=== PATIENT | female | born 1950 ===

== ENCOUNTER 2018-02-19 08:02 | Day surgery (SDC) | payer BC, MEDICARE ==
[~2018-02-19] VITALS: Ht 160 cm; Wt 90.7 kg
== END 2018-02-19 10:24 | disposition home or self-care (01) ==
LOC: ORSCSDS 08:02
PROVIDERS: Surgery
PROC: 0DBM8ZX Excision of Descending Colon, Via Natural or Artificial Opening Endoscopic, Diagnostic (ICD-10-PCS; principal; 2018-02-19 09:15)
DX: Z12.11 Encounter for screening for malignant neoplasm of colon (principal); D12.4 Benign neoplasm of descending colon; Z80.0 Family history of malignant neoplasm of digestive organs; I10 Essential (primary) hypertension; E78.5 Hyperlipidemia, unspecified; E66.9 Obesity, unspecified; Z68.35 Body mass index [BMI] 35.0-35.9, adult
CPT/HCPCS: 88305; J7120

== ENCOUNTER 2023-04-15 09:16 | Day surgery (SDC) | payer MEDICARE, BC ==
[~2023-04-15] VITALS: Ht 160 cm; Wt 95.6 kg
[2023-04-15 11:24] VITALS: BP 110/66
== END 2023-04-15 11:18 | disposition home or self-care (01) ==
LOC: ORSCSDS 09:16
PROVIDERS: Surgery
PROC: 0DJD8ZZ Inspection of Lower Intestinal Tract, Via Natural or Artificial Opening Endoscopic (ICD-10-PCS; principal; 2023-04-15 10:45)
DX: Z12.11 Encounter for screening for malignant neoplasm of colon (principal); Z86.010 Personal history of colon polyps; Z80.0 Family history of malignant neoplasm of digestive organs; K57.30 Diverticulosis of large intestine without perforation or abscess without bleeding; Z68.38 Body mass index [BMI] 38.0-38.9, adult; Z87.891 Personal history of nicotine dependence
CPT/HCPCS: J2704; J7120